=== PATIENT | male | born 1975 | race Caucasian/White ===

== ENCOUNTER 2017-06-09 07:43 | Emergency (ER) | payer SELFPAY ==
[2017-06-09] MEDS ORDERED: KETOROLAC 30 MG/ML INJ ONE (07:54)
[2017-06-09] MEDS ORDERED: ONDANSETRON 4 MG/2 ML VIAL ONE (07:59)
[2017-06-09 08:17] LABS: Absolute Lymphocytes (CBC) 2.7 K/uL (0.7-4.9); Absolute Monocytes 0.7 K/uL (0.1-1.3); Absolute Neutrophil 4.3 K/uL (1.8-8.0); Basophils % 0.6 % (0-1.3); Bicarbonate 24 mEq/L (21-31); Eosinophils % 1.7 % (0-4.4); Glucose Level 148 mg/dL (65-120); Hematocrit 42.7 % (39.6-49.0); Lipase 24 U/L (22-51); Lymphocytes % 34.9 % (15.3-44.8); MCH 30.7 pg (27.0-35.0); MCV 91.1 fL (80-100); MPV 8.7 fL (7.6-11.3); Monocytes % 8.5 % (3.3-12.3); Potassium 3.8 mEq/L (3.6-5.0); RBC Red Blood Cell Count 4.69 M/uL (4.33-5.43); Sodium Level 137 mEq/L (135-145)
[2017-06-09 08:18] LABS: Protime INR 0.92
[2017-06-09 08:23] LABS: ALT/SGPT 26 IU/L (10-60); AST/SGOT 20 IU/L (10-42); Albumin 4.2 g/dL (3.2-5.5); Alkaline Phosphatase 43 IU/L (42-121); BUN Blood Urea Nitrogen 26 mg/dL (6-20); Bilirubin Direct 0.1 mg/dL (0-0.2); Bilirubin Total 0.8 mg/dL (0.3-1.2); Creatine Phosphokinase 171 IU/L (22-269); Magnesium 2.1 mg/dL (1.8-2.5); Protein, Total 6.6 g/dL (6.0-8.3)
[2017-06-09 08:37] LABS: Alcohol Serum/Plasma < 10 mg/dl
[2017-06-09 08:53] LABS: Urine Blood NEGATIVE (NEG); Urine Glucose NEGATIVE (NEG); Urine Protein NEGATIVE (NEG); Urine Specific Gravity 1.025 (1.005-1.030)
[2017-06-09 08:59] LABS: Barbiturates NEGATIVE; Benzodiazepines NEGATIVE; Cocaine NEGATIVE; METHAMPHETAM NEGATIVE; Opiates NEGATIVE; Phencyclidine NEGATIVE; THC Cannibis NEGATIVE
[2017-06-09 09:01] LABS: Urine Amorphous Sediment 1+ /HPF (NONE SEEN); Urine Bacteria NONE SEEN /HPF (NONE SEEN); Urine Culture Reflex Order NOT NEEDED; Urine Mucus LIGHT /HPF (NONE SEEN); Urine RBC NONE SEEN /HPF (NONE SEEN)
--- NOTE | 2017-06-09 09:52 | RAD REPORT ---
EXAM DESCRIPTION: Fernandez Single View06/09/2017 8:28 am CLINICAL HISTORY: Chest pain COMPARISON: none FINDINGS: The lungs appear clear of acute infiltrate. The heart is normal size IMPRESSION: No acute abnormalities displayed
--- NOTE | 2017-06-09 10:19 | RAD REPORT ---
EXAM DESCRIPTION: CT - Abdomen Pelvis W Contrast - 06/09/2017 9:45 am CLINICAL HISTORY: Abdominal pain. Nausea COMPARISON: None. TECHNIQUE: Computed axial tomography of the abdomen and pelvis was obtained. 100 cc Isovue-300 is ad ministered intravenously. Oral contrast was given. All CT scans are performed using dose optimization technique as appropriate and may include automated exposure control or mA/KV adjustment according to patient size. FINDINGS: The liver, spleen, pancreas, adrenals and kidneys appear unremarkable. The appendix is normal caliber. There is no evidence of diverticulitis Portions of the wall of the descending colon appear mildly thickened. IMPRESSION: Portions of the wall of the descending colon appear mildly thickened. This may simply be secondary to incomplete. A mild colitis can also have this appearance
--- NOTE | 2017-06-09 10:42 | EDPHYS ---
Physician Documentation [facility] Name: Brant Obrien Age: 42 yrs Sex: Male : 1975 Arrival Date: 06/09/2017 Time: 07:43 Bed 6 Private MD: ED Physician Curt Oliveira HPI: 06/09 07:49 This 42 yrs old Male presents to ER via EMS with complaints of Abdominal wa Pain, Epigastric Pain. 07:49 The patient presents with abdominal pain states feeling weak and unwell x 2 days. This wa is AM at work while eating a sausage he got sweaty, nauseous, abd pain and chest pain and had to lay down on the floor. denies h/o same in the past. states abd pain still 05/16. denies fever, GARCIA, or neck pain. Onset: The symptoms/episode began/occurred this morning. The symptoms do not radiate. Associated signs and symptoms: Pertinent positives: chest pain, nausea, weakness. The symptoms are described as achy. Modifying factors: The symptoms are alleviated by nothing, the symptoms are aggravated by nothing. Severity of pain: At its worst the pain was severe in the emergency department the pain has improved. The patient has not experienced similar symptoms in the past. The patient has not recently seen a physician. Historical: - Allergies: 07:46 Tramadol HCl; sv 07:46 Zithromax; sv - Home Meds: 07:46 None [Active]; sv - PMHx: 07:46 None; sv - PSHx: 07:46 None; sv - Immunization history:: Adult Immunizations up to date. - Social history:: Smoking status: Patient uses tobacco products, smokes one-half pack cigarettes per day, chewing tobacco, Patient uses alcohol, only on a social basis. - Family history:: not pertinent. - Hospitalizations: : No recent hospitalization is reported. ROS: 07:52 Constitutional: Negative for fever, chills, and weight loss, Eyes: Negative for injury, wa pain, redness, and discharge, ENT: Negative for injury, pain, and discharge, Neck: Negative for injury, pain, and swelling, Back: Negative for injury and pain, : Negative for injury, bleeding, discharge, and swelling, MS/Extremity: Negative for injury and deformity, Skin: Negative for injury, rash, and discoloration. 07:52 Cardiovascular: Positive for chest pain. 07:52 Respiratory: Positive for shortness of breath. 07:52 Abdomen/GI: Positive for abdominal pain, nausea. 07:52 Neuro: Positive for weakness. 07:52 All other systems are negative. Exam: 07:53 Constitutional: This is a well developed, well nourished patient who is awake, alert, wa and in no acute distress. Head/Face: Normocephalic, atraumatic. Eyes: Pupils equal round and reactive to light, extra-ocular motions intact. Lids and lashes normal. Conjunctiva and sclera are non-icteric and not injected. Cornea within normal limits. Periorbital areas with no swelling, redness, or edema. ENT: Nares patent. No nasal discharge, no septal abnormalities noted. Tympanic membranes are normal and external auditory canals are clear. Oropharynx with no redness, swelling, or masses, exudates, or evidence of obstruction, uvula midline. Mucous membranes moist. Neck: Trachea midline, no thyromegaly or masses palpated, and no cervical lymphadenopathy. Supple, full range of motion without nuchal rigidity, or vertebral point tenderness. No Meningismus. Chest/axilla: Normal chest wall appearance and motion. Nontender with no deformity. No lesions are appreciated. Cardiovascular: Regular rate and rhythm with a normal S1 and S2. No gallops, murmurs, or rubs. Normal PMI, no JVD. No pulse deficits. Respiratory: Lungs have equal breath sounds bilaterally, clear to auscultation and percussion. No rales, rhonchi or wheezes noted. No increased work of breathing, no retractions or nasal flaring. Back: No spinal tenderness. No costovertebral tenderness. Full range of motion. Skin: Warm, dry with normal turgor. Normal color with no rashes, no lesions, and no evidence of cellulitis. MS/ Extremity: Pulses equal, no cyanosis. Neurovascular intact. Full, normal range of motion. Neuro: Awake and alert, GCS 15, oriented to person, place, time, and situation. Cranial nerves II-XII grossly intact. Motor strength 5/5 in all extremities. Sensory grossly intact. Cerebellar exam normal. Normal gait. 07:53 Abdomen/GI: Inspection: abdomen appears normal, Bowel sounds: normal, in all quadrants, Palpation: soft, in all quadrants, mild abdominal tenderness, in all quadrants. Vital Signs: 07:47 BP 140 / 79; Pulse 57; Resp 12; Temp 96.8(TE); Pulse Ox 99% on R/A; Weight 81.65 kg sv (R); Height 6 ft. 0 in. (182.88 cm) (R); Pain 4/10; 09:00 BP 150 / 103; Pulse 62; Resp 18; Pulse Ox 99% on R/A; jb1 10:26 BP 163 / 94; Pulse 69; Resp 17; Pulse Ox 99% on R/A; jb1 07:47 Body Mass Index 24.41 (81.65 kg, 182.88 cm) sv MDM: 07:45 Patient medically screened. wa 07:53 Differential diagnosis: acute coronary syndrome, cholecystitis, Cholelithiasis, wa diverticulitis, gastritis, non-specific abd pain, Pyelonephritis, Ureterolithiasis, urinary tract infection. 10:37 Data reviewed: vital signs, nurses notes, lab test result(s), radiologic studies. Test wa interpretation: by ED physician or midlevel provider: labs noted within nml limits. . 10:38 Test interpretation: by ED physician or midlevel provider: CT abd/pelvis: possible mild wa colonic inflammation. Response to treatment: the patient's symptoms have markedly improved after treatment. 10:38 Test interpretation: by ED physician or midlevel provider: EKG: HR 57. early repol? wa noted ST elevation with repol type configuration. no reciprocal changes. ED course: pain improved. stated back pain. symptoms chronic. gave a dose of fentanyl. will d/c with abx and close f/u. 06/09 07:46 Order name: Basic Metabolic Panel; Complete Time: :06/09 07:46 Order name: CBC with Diff; Complete Time: 09:06/09 07:46 Order name: CPK; Complete Time: :06/09 07:46 Order name: LFT's; Complete Time: :06/09 07:46 Order name: Magnesium; Complete Time: 09:06/09 07:46 Order name: PT-INR; Complete Time: 09:06/09 07:46 Order name: Troponin (emerg Dept Use Only); Complete Time: 09:06/09 07:46 Order name: XRAY Chest (1 view) 06/09 07:47 Order name: Lipase; Complete Time: 09:10 ms 06/09 07:47 Order name: Urine Drug Screen; Complete Time: 09:10 ms 06/09 07:47 Order name: Urine Microscopic Only; Complete Time: 09:10 ms 06/09 07:47 Order name: Alcohol Level; Complete Time: 09:10 ms 06/09 07:56 Order name: CT Abd/Pelvis - W/Contrast; Complete Time: 10:20 ms 06/09 08:45 Order name: Urine Dipstick--Ancillary (enter results); Complete Time: 09:09 06/09 07:46 Order name: EKG; Complete Time: 07:47 ms 06/09 07:46 Order name: Cardiac monitoring; Complete Time: 07:49 ms 06/09 07:46 Order name: EKG - Nurse/Tech; Complete Time: 08:33 ms 06/09 07:46 Order name: IV Saline Lock; Complete Time: 07:49 ms 06/09 07:46 Order name: Labs collected and sent; Complete Time: 07:49 ms 06/09 07:46 Order name: O2 Per Protocol; Complete Time: 07:50 ms 06/09 07:46 Order name: O2 Sat Monitoring; Complete Time: 07:50 ms 06/09 07:46 Order name: Urine Dipstick-Ancillary (obtain specimen); Complete Time: 08:33 ms Administered Medications: 07:58 Drug: TORadol 30 mg Route: IVP; Site: right antecubital; sv 08:32 Follow up: Response: No adverse reaction sv 08:02 Drug: Zofran 4 mg Route: IVP; Site: right antecubital; sv 08:32 Follow up: Response: No adverse reaction sv 10:48 Drug: fentaNYL (PF) 50 mcg Route: IVP; Site: right antecubital; sv 11:12 Follow up: Response: No adverse reaction sv Disposition: 06/09/17 10:41 Discharged to Home. Impression: Generalized abdominal pain. - Condition is Stable. - Prescriptions for Zofran 4 mg Oral Tablet - take 1 tablet by ORAL route every 12 hours As needed; 20 tablet. Pepcid 20 mg Oral Tablet - take 1 tablet by ORAL route once daily for 10 days; 10 tablet. Valium 5 mg Oral Tablet - take 1 tablet by ORAL route every 8 hours As needed; 10 tablet. Flagyl 500 mg Oral Tablet - take 1 tablet by ORAL route every 12 hours for 7 days; 14 tablet. Cipro 500 mg Oral Tablet - take 1 tablet by ORAL route every 12 hours for 7 days; 14 tablet. - Work release form, Medication Reconciliation Form, Thank You Letter, Antibiotic Education, Prescription Opioid Use form. - Follow up: Emergency Department; When: 2 - 3 days; Reason: Re-evaluation by your physician. Follow up: Sergey Dash MD; When: 2 - 3 days; Reason: Re-evaluation by your physician. - Problem is new. - Symptoms have improved. - Notes: follow up with the gastro doctor as discussed Signatures: Dispatcher [employer] Jewell Adam RN RN sv Appiah, William, MD MD wa Corrections: (The following items were deleted from the chart) 11:13 10:41 06/09/2017 10:41 Discharged to Home. Impression: Generalized abdominal pain. sv Condition is Stable. Forms are Medication Reconciliation Form, Thank You Letter, Antibiotic Education, Prescription Opioid Use. Follow up: Emergency Department; When: 2 - 3 days; Reason: Re-evaluation by your physician. Follow up: Sergey Dash; When: 2 - 3 days; Reason: Re-evaluation by your physician. Problem is new. Symptoms have improved. wa
--- NOTE | 2017-06-09 10:42 | ER ---
Nurse's Notes [facility] Name: Brant Obrien Age: 42 yrs Sex: Male : 1975 Arrival Date: 06/09/2017 Time: 07:43 Bed 6 Private MD: Diagnosis: Generalized abdominal pain Presentation: 06/09 07:35 Presenting complaint: EMS states: found pt laying on the ground stating he didn't feel sv well. Pt then stated abd and chest discomfort. Pt was pale and diaphoretic on arrival. 18G R AC. Nitro x 1 given SBP before 154/53 and after 119/60. ASA 324 mg PO. BS -166. c/o nausea. Transition of care: patient was not received from another setting of care. Onset of symptoms was June 09, 2017. Care prior to arrival: Medication(s) given: ASA, 81 mg, x 4, Nitroglycerin, 0.4 mg SL x 1, IV initiated. 18 GA, in the right antecubital area, Glucose check: 166. 07:35 Method Of Arrival: EMS: [facility] sv 07:35 Acuity: ROSANNA 3 sv 07:36 Initial Sepsis Screen: Does the patient meet any 2 criteria? No. Patient's initial sv sepsis screen is negative. Does the patient have a suspected source of infection? No. Patient's initial sepsis screen is negative. Historical: - Allergies: 07:46 Tramadol HCl; sv 07:46 Zithromax; sv - Home Meds: 07:46 None [Active]; sv - PMHx: 07:46 None; sv - PSHx: 07:46 None; sv - Immunization history:: Adult Immunizations up to date. - Social history:: Smoking status: Patient uses tobacco products, smokes one-half pack cigarettes per day, chewing tobacco, Patient uses alcohol, only on a social basis. - Family history:: not pertinent. - Hospitalizations: : No recent hospitalization is reported. Screenin:48 Abuse screen: Denies threats or abuse. Denies injuries from another. Nutritional sv screening: No deficits noted. Tuberculosis screening: No symptoms or risk factors identified. Fall Risk None identified. Assessment: 07:40 General: Appears uncomfortable, well developed, Behavior is cooperative, agitated, sv uncooperative. Pain: Complains of pain in epigastric area, right upper quadrant, left upper quadrant, right lower quadrant and left lower quadrant Pain currently is 4 out of 10 on a pain scale. Quality of pain is described as "like someone sitting on me." Pain began "this morning" Is continuous, Also complains of nausea. Neuro: Level of Consciousness is awake, alert, obeys commands, Oriented to person, place, time, situation, Moves all extremities. Full function Speech is normal. Cardiovascular: Patient's skin is warm and dry. Respiratory: Respiratory effort is even, unlabored, Respiratory pattern is regular, symmetrical. GI: Abdomen is flat, non-distended, Abd is soft X 4 quads Abdomen is tender to palpation X 4 quads. Reports nausea. Derm: Skin is normal. Musculoskeletal: Range of motion: intact in all extremities. 08:36 Reassessment: Pt ripped the cardiac leads, BP cuff and pulse ox off. sv 10:48 Reassessment: Patient appears in no apparent distress at this time. Patient and/or sv family updated on plan of care and expected duration. Pain level reassessed. Patient is alert, oriented x 3, equal unlabored respirations, skin warm/dry/pink. Pt calling for his ride home. 11:12 Reassessment: Patient appears in no apparent distress at this time. Patient and/or sv family updated on plan of care and expected duration. Pain level reassessed. Patient is alert, oriented x 3, equal unlabored respirations, skin warm/dry/pink. Patient states feeling better. Patient states symptoms have improved. Vital Signs: 07:47 BP 140 / 79; Pulse 57; Resp 12; Temp 96.8(TE); Pulse Ox 99% on R/A; Weight 81.65 kg sv (R); Height 6 ft. 0 in. (182.88 cm) (R); Pain 4/10; 09:00 BP 150 / 103; Pulse 62; Resp 18; Pulse Ox 99% on R/A; jb1 10:26 BP 163 / 94; Pulse 69; Resp 17; Pulse Ox 99% on R/A; jb1 07:47 Body Mass Index 24.41 (81.65 kg, 182.88 cm) sv ED Course: 07:35 Maintain EMS IV. Dressing intact. Good blood return noted. Site clean \\T\\ dry. Gauge \\T\\ sv site: 18G R AC. 07:40 gambling monitor on. Pulse ox on. NIBP on. sv 07:43 Patient arrived in ED. sv 07:43 Jewell Arroyo, HERACLIO is Primary Nurse. sv 07:45 Curt Oliveira MD is Attending Physician. wa 07:45 Triage completed. sv 07:47 Arm band placed on right wrist. sv 07:48 Patient has correct armband on for positive identification. Bed in low position. Call sv light in reach. Side rails up X2. 07:57 Radiology exam delayed due to pt uncooperative. when asked to take xray, pt stated jb2 "That's not gonna happen right now man.". 08:02 Initial lab(s) drawn, by me, sent to lab. sg 08:27 X-ray completed. Portable x-ray completed in exam room. Patient tolerated procedure ag1 well. 08:28 XRAY Chest (1 view) In Process Unspecified. EDMS 08:33 Urine collected: clean catch specimen, clear. sv 08:38 Awaiting lab results, Awaiting CT Scan. sv 08:46 Urine Dipstick--Ancillary (enter results) Sent. sv 09:45 CT Abd/Pelvis - W/Contrast In Process Unspecified. EDMS 10:40 Sergey Dash MD is Referral Physician. wa 11:12 No provider procedures requiring assistance completed. IV discontinued, intact, sv bleeding controlled, No redness/swelling at site. Pressure dressing applied. Administered Medications: 07:58 Drug: TORadol 30 mg Route: IVP; Site: right antecubital; sv 08:32 Follow up: Response: No adverse reaction sv 08:02 Drug: Zofran 4 mg Route: IVP; Site: right antecubital; sv 08:32 Follow up: Response: No adverse reaction sv 10:48 Drug: fentaNYL (PF) 50 mcg Route: IVP; Site: right antecubital; sv 11:12 Follow up: Response: No adverse reaction sv Intake: 08:15 PO: 500ml (Contrast); Total: 500ml. sv Output: 08:37 Urine: 300ml (Voided); Total: 300ml. sv Outcome: 10:41 Discharge ordered by . wa 11:12 Discharged to home ambulatory, Pt waiting for his transportation home. sv 11:12 Condition: stable 11:12 Condition: improved 11:12 Discharge instructions given to patient, Instructed on discharge instructions, follow up and referral plans. no drinking with medication, no driving heavy equipment, medication usage, Demonstrated understanding of instructions, follow-up care, medications, Prescriptions given X 4. 11:13 Patient left the ED. sv Signatures: Dispatcher [employer] EDOneal Lynn1 Jewell Arroyo RN RN sv Gay, Steven, RN RN sg Buechter, Jesse jb2 Alina Celaya 1 Curt Oliveira MD MD ca
[2017-06-09] MEDS ORDERED: FENTANYL CITR 100 MCG/2 ML ONE (10:44)
== END 2017-06-09 11:13 | disposition home or self-care (01) ==
LOC: ER 07:43
DX: R10.84 Generalized abdominal pain (principal); F17.210 Nicotine dependence, cigarettes, uncomplicated; Z88.1 Allergy status to other antibiotic agents; Z88.6 Allergy status to analgesic agent
CPT/HCPCS: 36415; 71045; 74177; 80048; 80076; 80307; 80320; 81003; 81015; 82550; 83690; 83735; 84484; 85025; 85610; 93005; 96374; 96375; 99284; J2405; J3010; Q9967